=== PATIENT | male | born 1965 | race Two or more races ===

== ENCOUNTER → 2017-11-30 | Emergency (ER) | payer OTHER ==
[~2017-11-30] VITALS: Ht 175.3 cm; Wt 86.2 kg
[~2017-11-30] MED LIST: CIPRO500 MG PO; COZAAR25 MG; FLAGYL500MG PO; ULTRACET PO
== END | disposition home or self-care (01) ==
LOC: ER 10:50
DX: K57.92 Diverticulitis of intestine, part unspecified, without perforation or abscess without bleeding (principal); R10.31 Right lower quadrant pain; I10 Essential (primary) hypertension